=== PATIENT | female | born 1970 | race American Indian/Alaskan Native ===

== ENCOUNTER 2018-04-13 22:53 | Emergency (ER) | payer MEDICAID ==
[2018-04-13] MEDS ORDERED: ASPIRIN PO ONE (23:14)
[2018-04-13 23:51] LABS: Basophils % (Auto) 0.6 % (0.0-1.8); Eosinophils # (Auto) 0.1 K/mm3 (0.0-0.4); Eosinophils % (Auto) 0.9 % (0.0-4.3); Hematocrit 36.2 % (30.3-42.9); Hemoglobin 12.1 gm/dl (10.1-14.3); Lymphocytes # (Auto) 2.2 K/mm3 (1.2-5.4); Lymphocytes % (Auto) 35.1 % (13.4-35.0); Mean Corpuscular HGB Conc 33 % (30-34); Mean Corpuscular Hemoglobin 29 pg (28-32); Mean Corpuscular Volume 86 fl (79-97); Monocytes # (Auto) 0.4 K/mm3 (0.0-0.8); Monocytes % (Auto) 6.7 % (0.0-7.3); Platelet Count 293 K/mm3 (140-440); Red Cell Distribution Width 13.8 % (13.2-15.2)
[2018-04-14 00:17] LABS: BUN/Creatinine Ratio 23; Blood Urea Nitrogen 14 mg/dL (7-17); Calcium 9.2 mg/dL (8.4-10.2); Hemolysis Index 3
--- NOTE | 2018-04-14 04:38 | XRay Report ---
FINAL REPORT EXAM: XR SHOULDER 2+V RT HISTORY: Rt shoulder pain/ No trauma COMPARISONS: None. FINDINGS: Three views right shoulder Right glenohumeral joint appears intact. Acromioclavicular and coracoclavicular intervals are within normal limits. No displaced fractures. Incomplete evaluation of the adjacent right lung is unremarkable. IMPRESSION: Unremarkable right shoulder radiographs.
--- NOTE | 2018-04-14 07:24 | Emergency Department Report ---
ED Palpitations HPI - General Chief Complaint: Arrhythmia/Palpitations Stated Complaint: HEART BEATING FAST Time Seen by Provider: 04/14/18 07:21 Source: patient Mode of arrival: Ambulatory Limitations: No Limitations - History of Present Illness Initial Comments: This is a 47-year-old female that was actually coming to the emergency room for chronic right shoulder pain. She has seen an orthopedist for a while. She has previously requested a MRI for the same but it has not yet been done. On the way to the emergency room she had an episode of breathing fast heart racing. This resolved. It was not associated with any chest pain or any change in her chronic right shoulder pain. Her right shoulder hurts on movement anterior and posterior. It's actually been going on for months. She reports no recent travel or injury. She is already had around her physical therapy. The patient admits anxiety and rapid breathing during this episode of tachycardia. She did not check her pulse. She states that she does suffer from anxiety in general. - Related Data Previous Rx's Medication Instructions Recorded Last Taken Type HYDROcodone/APAP 7.5-325 [[place] 1 each PO Q6HR PRN #14 tablet 04/14/18 Unknown Rx 7.5/325] Allergies Allergy/AdvReac Type Severity Reaction Status Date / Time Sulfa (Sulfonamide Allergy Hives Verified 04/14/18 07:26 Antibiotics) ED Review of Systems ROS: Stated complaint: HEART BEATING FAST Other details as noted in HPI Constitutional: denies: chills, fever Eyes: denies: eye pain, eye discharge, vision change ENT: denies: ear pain, throat pain Respiratory: denies: cough, shortness of breath, wheezing Cardiovascular: palpitations. denies: chest pain Endocrine: no symptoms reported Gastrointestinal: denies: abdominal pain, nausea, diarrhea Genitourinary: denies: urgency, dysuria, discharge Musculoskeletal: as per HPI. denies: back pain, joint swelling, arthralgia Skin: denies: rash, lesions Neurological: denies: headache, weakness, paresthesias Psychiatric: denies: anxiety, depression Hematological/Lymphatic: denies: easy bleeding, easy bruising ED Past Medical Hx - Past Medical History Previous Medical History?: No - Surgical History Past Surgical History?: No - Social History Smoking Status: Never Smoker Substance Use Type: None - Medications Home Medications: Home Medications Medication Instructions Recorded Confirmed Last Taken Type HYDROcodone/APAP 7.5-325 [[place] 1 each PO Q6HR PRN #14 tablet 04/14/18 Unknown Rx 7.5/325] ED Physical Exam - General Limitations: No Limitations General appearance: alert, in no apparent distress - Head Head exam: Present: atraumatic, normocephalic - Eye Eye exam: Present: normal appearance - ENT ENT exam: Present: normal exam, mucous membranes moist - Neck Neck exam: Present: normal inspection. Absent: tenderness, meningismus - Respiratory Respiratory exam: Present: normal lung sounds bilaterally. Absent: respiratory distress - Cardiovascular Cardiovascular Exam: Present: regular rate, normal rhythm. Absent: systolic murmur, diastolic murmur, rubs, gallop - GI/Abdominal GI/Abdominal exam: Present: soft, normal bowel sounds. Absent: distended, tenderness, guarding, rebound, rigid - Extremities Exam Extremities exam: Present: tenderness, normal capillary refill, other ( apprehension on somewhat limited range of motion of the shoulder. No deformity. Glenoid is full. Neurovascular exam is intact. There is no swelling. There is no overlying erythema.) - Back Exam Back exam: Present: normal inspection. Absent: CVA tenderness (R), CVA tenderness (L) - Neurological Exam Neurological exam: Present: alert, oriented X3, CN II-XII intact. Absent: motor sensory deficit - Psychiatric Psychiatric exam: Present: normal affect, normal mood - Skin Skin exam: Present: warm, dry, intact, normal color. Absent: rash ED Course Vital Signs 04/13/18 04/14/18 04/14/18 23:09 06:26 06:49 Temperature 98 F 98.2 F Pulse Rate 85 72 Respiratory 20 16 18 Rate Blood Pressure 139/84 Blood Pressure 139/84 133/74 [Right] O2 Sat by Pulse 100 100 Oximetry 04/14/18 07:04 Temperature Pulse Rate 68 Respiratory 14 Rate Blood Pressure Blood Pressure [Right] O2 Sat by Pulse Oximetry - Reevaluation(s) Reevaluation #1: Patient will be given Decadron, Easton and a sling. She is referred to our orthopedist if she wants a second opinion. It would appear that an MRI is indicated at this time but certainly it is not an emergency. 04/14/18 08:00 ED Medical Decision Making - Lab Data Result diagrams: 04/13/18 23:34 04/13/18 23:34 Laboratory Results - last 24 hr 04/13/18 04/13/18 04/14/18 23:34 23:34 02:35 WBC 6.2 RBC 4.20 Hgb 12.1 Hct 36.2 MCV 86 MCH 29 MCHC 33 RDW 13.8 Plt Count 293 Lymph % (Auto) 35.1 H [place] % (Auto) 6.7 Eos % (Auto) 0.9 Baso % (Auto) 0.6 Lymph # 2.2 [place]ata[place] # 0.4 Eos # 0.1 Baso # 0.0 Seg Neutrophils % 56.7 Seg Neutrophils # 3.5 Sodium 144 Potassium 3.6 Chloride 104.0 Carbon Dioxide 28 Anion Gap 16 BUN 14 Creatinine 0.6 L Estimated GFR > 60 BUN/Creatinine Ratio 23 Glucose 132 H Calcium 9.2 Troponin T < 0.010 < 0.010 04/14/18 05:39 WBC RBC Hgb Hct MCV MCH MCHC RDW Plt Count Lymph % (Auto) [place] % (Auto) Eos % (Auto) Baso % (Auto) Lymph # [place] # Eos # Baso # Seg Neutrophils % Seg Neutrophils # Sodium Potassium Chloride Carbon Dioxide Anion Gap BUN Creatinine Estimated GFR BUN/Creatinine Ratio Glucose Calcium Troponin T < 0.010 - EKG Data -: EKG Interpreted by Me EKG shows normal: sinus rhythm, axis, intervals, QRS complexes, ST-T waves Rate: normal - EKG Data Interpretation: normal EKG Critical care attestation.: If time is entered above; I have spent that time in minutes in the direct care of this critically ill patient, excluding procedure time. ED Disposition Clinical Impression: Bursitis of shoulder, right, Anxiety Disposition: DC-01 TO HOME OR SELFCARE Is pt being admited?: No Does the pt Need Aspirin: No Condition: Stable Instructions: Shoulder Bursitis (ED) Additional Instructions: A second opinion could be obtained through our orthopedist Dr. Mauro. She referral. It would appear that an MRI is indicated. Rest shoulder. Prescriptions: HYDROcodone/APAP 7.5-325 [[place] 7.5/325] 1 each PO Q6HR PRN #14 tablet PRN Reason: Pain Referrals: CAMILLA GOULD MD [Primary Care Provider] - 3-5 Days NADJA MAURO MD [Staff Physician] - 2-3 Days Time of Disposition: 08:03
[2018-04-14] MEDS ORDERED: DECADRON IM ONE (07:57)
[2018-04-14] MEDS ORDERED: NORCO 5/325 PO ONE (07:57)
[2018-04-14 08:48] VITALS: BP 121/101
== END 2018-04-14 08:45 | disposition home or self-care (01) ==
LOC: ED 22:53
DX: M75.51 Bursitis of right shoulder (principal); F41.9 Anxiety disorder, unspecified; Z88.2 Allergy status to sulfonamides
CPT/HCPCS: 36415; 73030; 80048; 84484; 85025; 93005; 93010; 96372; 99285; J1100